=== PATIENT | female | born 1950 | race Caucasian/White ===

== ENCOUNTER → 2024-02-12 12:25 | Outpatient (REF) | payer MEDICARE, SELFPAY | LOC: WDC 12:25 | PROVIDERS: ATTENDING PHYSICIAN Internal Medicine | DX: Z12.31 Encounter for screening mammogram for malignant neoplasm of breast (principal) | CPT/HCPCS: 77063; 77067 ==

== ENCOUNTER → 2024-11-16 07:36 | Outpatient (REF) | payer MEDICARE, SELFPAY ==
[2024-11-16 08:28] LABS: % Basophils 2.1 % (0-2); % Eosinophils 3.9 % (0-6); % Immature Granulocytes 0.3 % (0-0.5); % Lymphocytes 36.4 % (20.5-51.1); % Monocytes 10.6 % (1.7-9.3); % Neutrophils 46.7 % (42.2-75.2); Absolute Basophils 0.1 10^3/uL (0-0.2); Absolute Eosinophils 0.2 10^3/uL (0-0.7); Absolute Lymphocytes 1.4 10^3/uL (1.2-3.4); Absolute Monocytes 0.4 10^3/uL (0.1-0.6); Absolute Neutrophils 1.8 10^3/uL (1.4-6.5); Hematocrit 46.1 % (37.0-47.0); Hemoglobin 15.5 g/dL (12.0-16.0); Mean Corp Hgb Conc. 33.6 g/dL (33.0-37.0); Mean Corpuscular Hgb 32.9 pg (27.0-31.0); Mean Corpuscular Volume 97.9 fL (81.0-99.0); Mean Platelet Volume 10.4 fL (7.4-10.4); Nucleated Red Blood Cells % 0 %; Platelet Count 208 10^3/uL (130-400); Red Blood Cell Count 4.71 10^6/uL (4.20-5.40); Red Cell Dist. Width 12.9 % (11.5-14.5); White Blood Cell Count 3.9 10^3/uL (4.8-10.8)
[2024-11-16 08:56] LABS: ALT (SGPT) 20 U/L (0-35); AST (SGOT) 34 U/L (14-36); Albumin 4.5 g/dl (3.5-5.0); Alkaline Phosphatase 64 U/L (38-126); Blood Urea Nitrogen 15 mg/dl (7-17); Calcium 9.2 mg/dl (8.4-10.2); Carbon Dioxide 26 mmol/L (22-30); Chloride 106 mmol/L (98-107); Glucose 89 mg/dl (70-99); HDL Cholesterol 59 mg/dl; LDL Cholesterol, Calculated 99 mg/dl; Potassium 4.6 mmol/L (3.5-5.1); Sodium 140 mmol/L (135-145); Total Bilirubin 0.9 mg/dl (0.2-1.3); Total Cholesterol 176 mg/dl (50-199); Total Protein 6.9 g/dl (6.3-8.2); Triglyceride 90 mg/dl (10-149); Very Low Density Lipoprotein 18 mg/dl (0-30); eGFR > 60.00
[2024-11-16 09:16] LABS: TSH Reflex To Free T4 0.97 uIU/ml (0.47-4.68)
== END ==
LOC: REG 07:36
PROVIDERS: ATTENDING PHYSICIAN Internal Medicine
DX: E06.9 Thyroiditis, unspecified (principal); E78.5 Hyperlipidemia, unspecified; R53.83 Other fatigue; R09.02 Hypoxemia; E06.0 Acute thyroiditis; Z00.00 Encounter for general adult medical examination without abnormal findings
CPT/HCPCS: 36415; 80053; 80061; 84443; 85025

== ENCOUNTER → 2024-12-01 09:24 | Outpatient (REF) | payer MEDICARE, SELFPAY | LOC: RAD 09:24 | PROVIDERS: ATTENDING PHYSICIAN Internal Medicine | DX: M81.0 Age-related osteoporosis without current pathological fracture (principal) | CPT/HCPCS: 77080 ==

== ENCOUNTER → 2025-02-16 14:28 | Outpatient (REF) | payer MEDICARE, SELFPAY | LOC: WDC 14:28 | PROVIDERS: ATTENDING PHYSICIAN Internal Medicine | DX: Z12.31 Encounter for screening mammogram for malignant neoplasm of breast (principal) | CPT/HCPCS: 77063; 77067 ==

== ENCOUNTER 2025-05-16 10:30 | Emergency (ER) | payer MEDICARE, SELFPAY ==
[2025-05-16 10:33] VITALS: BP 112/68
[2025-05-16 10:54] LABS: Hematocrit 42.9 % (37.0-47.0); Hemoglobin 14.7 g/dL (12.0-16.0); Mean Corp Hgb Conc. 34.3 g/dL (33.0-37.0); Mean Corpuscular Volume 96.4 fL (81.0-99.0); Nucleated Red Blood Cells % 0 %; Platelet Count 244 10^3/uL (130-400); Red Cell Dist. Width 12.4 % (11.5-14.5)
[2025-05-16 11:17] LABS: ALT (SGPT) 17 U/L (0-35); AST (SGOT) 28 U/L (14-36); Albumin 4.2 g/dl (3.5-5.0); Alkaline Phosphatase 54 U/L (38-126); Blood Urea Nitrogen 13 mg/dl (7-17); Calcium 9.8 mg/dl (8.4-10.2); Carbon Dioxide 23 mmol/L (22-30); Chloride 108 mmol/L (98-107); Glucose 114 mg/dl (70-99); Potassium 4.5 mmol/L (3.5-5.1); Sodium 140 mmol/L (135-145); Total Protein 6.6 g/dl (6.3-8.2); eGFR > 60.00
[2025-05-16 11:18] VITALS: BP 113/73
[2025-05-16 11:30] LABS: Troponin I < 0.012 ng/ml
[2025-05-16 12:00] VITALS: BP 119/70
--- NOTE | 2025-05-16 12:10 | ED.GENMED ---
History of Present Illness
General
Chief Complaint: Fainting Sensation
Source: patient
Time Seen by Provider: 05/16/25 11:47
History of Present Illness
History of Present Illness:
74-year-old female presenting to the emergency department for 2 separate episodes of lightheadedness over the last 3 days, the first started on Saturday after she was laying outside, went to go get up to go to get back into her house when she started
with a lightheadedness episode which lasted for few minutes, she went to lay down and took a nap for about an hour and a half with symptoms fully resolved afterwards. Today while exercising walking on a tow path with a weighted vest she also
started to experience the symptoms, went back home and came to the ER. She states that intermittently she will notice that her heart rate goes up to about 140 bpm which she states is atypical for her noting that she is usually bradycardic. Patient
states that over the last 5 years she has had intermittent episodes of atrial fibrillation but is not currently anticoagulated as she states 'her blood is already thin'. Patient does follow with antenna specialist, Dr. Horn, overall unclear as to
why patient is not currently anticoagulated if she does have confirmed episodes of paroxysmal atrial fibrillation. At time of my exam patient states she feels 'great' and has no current symptoms. She denies any chest pain, shortness of breath,
cough, fevers or infectious symptoms, sinus congestion, URI-like symptoms, abdominal pain, nausea, vomiting or any other concerns.
Past History
Past History
ED Past Medical History: Arrthythmia and Other (Migraines)
ED Past Surgical History: Gynecological and Orthopedic
Social History
Tobacco: Non-smoker
Alcohol: None
Drug: None
Personal:
Living: with family
Review of Systems
Review of Systems
All Other Systems: ROS reviewed and negative except as documented in HPI and ROS
Phy Exam
Physical Exam
Physical Exam:
GENERAL: Alert , in no apparent distress
HEAD: NCAT
EYE: conjunctiva clear
NECK: Supple
ENT: o/p clr, mmm.
CARDIAC: Heart rate between 55 and 70 bpm, no murmur
LUNGS: Clear breath sounds bilaterally, no acute respiratory distress, no wheezes/rales/rhonchi
NEUROLOGICAL: Alert and oriented
SKIN: Warm and dry, skin intact.
MUSCULOSKELETAL: well perfused.
PSYCH: Normal and appropriate interaction.
Scores
Heart Failure Risk
Heart Failure Risk Score: Not Applicable
Heart Score for Chest Pain Patients
STEMI patient?: Not applicable
Withdrawal Assessment of Alcohol
Withdrawal Assessment Completed?: Not applicable
Course
Orders/Labs/Results
Orders:
Orders
05/16/25 10:37
Electrocardiogram (*1) Urgent
Reason for Study: Palpitations
EKG- Treatment ONCE
05/16/25 10:49
Complete Blood Count/With Diff Urgent
Comprehensive Metabolic Panel Urgent
Troponin I Urgent
Abnormal Lab Results
05/16/25
10:49
MCH 33.0 H pg
(27.0-31.0)
Chloride 108 H mmol/L
(98-107)
Glucose 114 H mg/dl
(70-99)
05/16/25 10:49
05/16/25 10:49
Vital Signs
Initial and Last Documented VS:
Initial Vital Signs
Temp Pulse Resp BP Pulse Ox
98.4 F 70 18 112/68 99
05/16/25 10:33 05/16/25 10:33 05/16/25 10:33 05/16/25 10:33 05/16/25 10:33
Last Documented Vital Signs
Temp Pulse Resp BP Pulse Ox
98.4 F 59 15 119/70 97
05/16/25 10:33 05/16/25 12:30 05/16/25 12:30 05/16/25 12:00 05/16/25 12:30
MDM/Problems Addressed
Differential Diagnosis Includes:
Atrial fibrillation
SVT
Valvular dysfunction
Thyroid dysfunction
Orthostasis
Vagal event
Electrolyte imbalance
ACS
MDM/Problems Addressed:
74-year-old female presenting to the ER for 2 episodes of episodic lightheadedness, 1 episode occurred when going from laying to standing and another while exercising. Patient states that intermittently she will notice her heart rate go up 120 to
140 bpm. Presently in a normal sinus rhythm/sinus bradycardia. She is otherwise asymptomatic. Labs reassuring. Patient has followed up with cardiology in the past for similar requiring a Holter monitor with last about 2 to 3 years ago. Given
patient is currently asymptomatic, no lab abnormalities and otherwise hemodynamically stable I do feel it is reasonable for patient to follow-up with cardiology. Given the patient's self-reported history of atrial fibrillation in the past and not
currently anticoagulated I did recommend the patient ask about anticoagulation when she follows up with her antenna specialist. Patient expressed understanding. Stable for discharge.
Chronic conditions affecting care: Arrhythmia
*Pulse Oximetry
SaO2: 99
Oxygen Mode of Delivery: Room air
Patient hypoxic: no
*EKG
Comparison EKG: no changes
Heart Rate: 74
Rate: normal
Rhythm: sinus arrhythmia
[place]: normal axis
Ischemia: no ischemia
*[employer] Interpretation
Rate: normal
Heart Rate: 60
Rhythm: sinus
*Critical Care Note
Total Time (30-74mins, 75-104mins- exclusive of procedures): Not Applicable
Data Reviewed
Review of Other/Old Records Reveals: Labs and Records
ED Attending Note
-
Portions of this chart may have been created with voice recognition software.� Occasional wrong word or��sound alike� substitutions may have occurred due to the inherent limitations of voice recognition software.
Discharge Plan
Departure
Patient Disposition: Home (Routine Discharge)
Date of Disposition: 05/16/25
Time of Disposition: 12:10
Patient with high blood pressure during this ER visit?: No
Discharge Problem:
Episodic lightheadedness
Instructions: Palpitations - ED discharge instructions, Chest Pain DCA Follow Up
Prescriptions:
No Action
ibandronate 150 mg Tablet
150 mg PO QMONTH
Rx Instructions:
8th of month
turmeric 400 mg Capsule
400 mg PO BID
Glucosamine Chondroitin 550-30-1 mg Capsule
1 cap PO DAILY
Boswellia
500 mg PO BID
collagen
1 tab PO DAILY
ascorbic acid (vitamin C) 250 mg Tablet
250 mg PO DAILY
omega-3 fatty acids-vitamin E 1,000 mg Capsule
2 cap PO DAILY
calcium 26-vit D3-magnesium 15 167 mg calcium- 1.67 mcg-83 mg Capsule
1 cap PO DAILY
mupirocin 2 % ointment
1 applic intranasal BID Qty: 1 0RF
Patient Comments:
patient applied last dose this a.m.
aspirin 325 mg Tablet
325 mg PO DAILY Qty: 30 0RF
Rx Instructions:
Take daily x4 weeks for blood clot prevention.
celecoxib 200 mg Capsule
200 mg PO DAILY Qty: 30 0RF
Rx Instructions:
Take with food.
DO NOT take within 2 hours of Aspirin.
dexamethasone 4 mg Tablet
4 mg PO Q12 Qty: 5 0RF
Rx Instructions:
Restart night of discharge and take every 12 hours until finished.
Take with food.
docusate sodium 100 mg Capsule
100 mg PO BID Qty: 30 0RF
famotidine 20 mg Tablet
20 mg PO HS Qty: 30 0RF
Rx Instructions:
Take nightly while on Celebrex and Aspirin to prevent GI upset.
oxycodone 5 mg Tablet
5 - 10 mg PO Q6H PRN (Reason: moderate-severe pain) Qty: 30 0RF
Rx Instructions:
1 tab for moderate pain, 2 if severe.
Dx total joint.
sennosides [Senna Lax] 8.6 mg Tablet
17.2 mg PO BID Qty: 30 0RF
ondansetron HCl 4 mg tablet
4 mg PO Q6H PRN (Reason: nausea and vomiting) Qty: 30 0RF
Rx Instructions:
Can take 1/2 hour prior to Oxycodone if experiencing recurrent nausea.
acetaminophen 500 mg Capsule
1,000 mg PO Q6H Qty: 0 0RF
Rx Instructions:
DO NOT exceed >4000 mg daily.
Interventions
Interventions:
*Risk Screen - Suicide Last Done: 05/16/25 10:33
*General Assessment Last Done: 05/16/25 10:33
*Neglect/Abuse Screening Last Done: 05/16/25 10:33
*ED- Fall Risk Assessment Last Done: 05/16/25 11:14
*ED COVID-19 Vaccine History Last Done: 05/16/25 11:14
*Nursing Disposition Last Done: 05/16/25 12:40
ED- Cardiac Assessment Last Done: 05/16/25 11:37
Discharge Date and Time
Discharge Date/Time: 05/16/25 12:41
Print Language: GREENLANDIC
== END 2025-05-16 12:41 | disposition home or self-care (01) ==
LOC: EMR 10:30
PROVIDERS: Emergency Medicine; EMERGENCY PHYSICIAN Emergency Medicine; FAMILY PHYSICIAN Internal Medicine
DX: R42 Dizziness and giddiness (principal); I48.91 Unspecified atrial fibrillation
CPT/HCPCS: 99283; 80053; 84484; 85025; 93005

== ENCOUNTER → 2025-08-13 06:46 | Outpatient (REF) | payer MEDICARE, SELFPAY ==
[2025-08-13 08:13] LABS: Hematocrit 44.7 % (37.0-47.0); Hemoglobin 15.1 g/dL (12.0-16.0); Mean Corp Hgb Conc. 33.8 g/dL (33.0-37.0); Mean Corpuscular Volume 97.0 fL (81.0-99.0); Nucleated Red Blood Cells % 0 %; Platelet Count 202 10^3/uL (130-400); Red Cell Dist. Width 12.9 % (11.5-14.5)
[2025-08-13 08:41] LABS: Blood Urea Nitrogen 17 mg/dl (7-17); Calcium 9.6 mg/dl (8.4-10.2); Carbon Dioxide 28 mmol/L (22-30); Chloride 106 mmol/L (98-107); Glucose 73 mg/dl (70-99); Potassium 5.1 mmol/L (3.5-5.1); Sodium 139 mmol/L (135-145); eGFR > 60.00
== END ==
LOC: REG 06:46
PROVIDERS: ATTENDING PHYSICIAN Internal Medicine Cardiovascular Disease; FAMILY PHYSICIAN Internal Medicine
DX: I48.0 Paroxysmal atrial fibrillation (principal)
CPT/HCPCS: 36415; 80048; 85025

== ENCOUNTER → 2025-10-20 14:51 | Outpatient (REF) | payer MEDICARE, SELFPAY | LOC: RCS 14:51 | PROVIDERS: ATTENDING PHYSICIAN Internal Medicine Cardiovascular Disease; FAMILY PHYSICIAN Internal Medicine | DX: R00.0 Tachycardia, unspecified (principal) | CPT/HCPCS: 93306 ==